=== PATIENT | female | born 1985 | race Caucasian/White ===

== ENCOUNTER 2021-09-22 13:42 | Inpatient (IN) | payer OTHER ==
[~2021-09-22] VITALS: Ht 162.6 cm; Wt 105.2 kg
[2021-09-22 14:24] LABS: BASOPHILS % (AUTO) 0.3 % (0.0-2.0); EOSINOPHILS # (AUTO) 0.1 K/uL (0-0.4); EOSINOPHILS % (AUTO) 0.5 % (0.0-4.0); HEMOGLOBIN 12.5 g/dL (12.0-16.0); LYMPHOCYTES # (AUTO) 0.7 K/uL (2.5-16.5); LYMPHOCYTES % (AUTO) 5.2 % (20.5-51.1); MEAN CORPUSCULAR HEMOGLOBIN 27 pg (27-31); MEAN CORPUSCULAR HGB CONC 33 g/dL (33-37); MEAN CORPUSCULAR VOLUME 82.7 fL (80-94); MONOCYTES # (AUTO) 0.4 K/uL (0.8-1.0); MONOCYTES % (AUTO) 2.8 % (1.7-9.3); NEUTROPHILS # (AUTO) 11.9 K/uL (1.8-7.7); NEUTROPHILS % (AUTO) 91.2 % (42.2-75.2); PLATELET COUNT (AUTO) 219 K/uL (140-450); RED BLOOD CELL COUNT(AUTO) 4.59 MIL/uL (4.20-5.40); RED CELL DISTRIBUTION WIDTH 15.3 % (11.6-13.7)
[2021-09-22] MEDS ORDERED: METOCLOPRAMIDE 10 MG/2 ML INJ VIAL IVP PRN (14:30)
[2021-09-22] MEDS ORDERED: ONDANSETRON 8 MG in NACL 0.9% 50 ML IVP PRN (14:30)
[2021-09-22 14:37] LABS: ANION GAP 15.8 (8-16); CARBON DIOXIDE 21.2 mmol/L (21-32); CREATININE 0.7 mg/dL (0.6-1.3); TOTAL BILIRUBIN 0.4 mg/dL (0.0-1.0)
[2021-09-22 15:21] LABS: APPEARANCE,URINE CLEAR (CLEAR); BILIRUBIN,URINE 1+ (NEGATIVE); BLOOD, URINE NEGATIVE (NEGATIVE); COLOR,URINE YELLOW (YELLOW); LEUKOCYTE ESTERASE ,URINE NEGATIVE (NEGATIVE); NITRITE, URINE NEGATIVE (NEGATIVE); UGLUCOSE NEGATIVE (NEGATIVE)
[2021-09-22] MEDS: LACTATED RINGERS 500 ML IV SCH ×3 (15:55→23:19)
[2021-09-22 16:25] LABS: RBC,URINE NONE SEEN /HPF (0-5); WBC,URINE 0-5 /HPF (0-5)
[2021-09-23] MEDS: LACTATED RINGERS 500 ML IV SCH (03:38)
--- NOTE | 2021-09-23 09:18 | NUR ---
PATIENT HAS BEEN SCREENED AND CATEGORIZED LOW NUTRITION RISK. PATIENT WILL BE SEEN WITHIN 7 DAYS OF ADMISSION. 09/29/[address]
== END 2021-09-23 08:37 | disposition home or self-care (01) | DRG 833 ==
LOC: MLD 13:42 → OBSVTOIN 14:55
PROVIDERS: ADMIT Obstetrics & Gynecology; ATTEND Obstetrics & Gynecology
DX: O99.283 Endocrine, nutritional and metabolic diseases complicating pregnancy, third trimester (principal); O24.419 Gestational diabetes mellitus in pregnancy, unspecified control; O9A.213 Injury, poisoning and certain other consequences of external causes complicating pregnancy, third trimester; E86.0 Dehydration; Z20.822 Contact with and (suspected) exposure to COVID-19; A05.9 Bacterial foodborne intoxication, unspecified; Z88.8 Allergy status to other drugs, medicaments and biological substances; Z90.49 Acquired absence of other specified parts of digestive tract; Z3A.28 28 weeks gestation of pregnancy; Y92.89 Other specified places as the place of occurrence of the external cause
CPT/HCPCS: 36415; 76805; 76819; 80053; 81001; 85025; 87177; J2405; Q0092

== ENCOUNTER 2021-11-01 13:34 | Observation (INO) | payer OTHER ==
[~2021-11-01] VITALS: Ht 162.6 cm; Wt 107.0 kg
[2021-11-01] MEDS ORDERED: PNV91TAB8 PO (13:48)
[2021-11-01 14:19] VITALS: BP 103/69
== END 2021-11-01 15:40 | disposition home or self-care (01) ==
LOC: MLD 13:34
PROVIDERS: ADMIT Obstetrics & Gynecology; ATTEND Obstetrics & Gynecology
DX: O42.913 Preterm premature rupture of membranes, unspecified as to length of time between rupture and onset of labor, third trimester (principal); Z3A.34 34 weeks gestation of pregnancy
CPT/HCPCS: 76819; G0378; G0379; Q0092